=== PATIENT | female | born 2000 | race Caucasian/White ===

== ENCOUNTER 2019-10-10 09:42 | Emergency (ER) | payer MEDICAID, SELFPAY ==
[~2019-10-10] VITALS: Ht 167.6 cm; Wt 55.8 kg
[2019-10-10 10:00] VITALS: Ht 167.6 cm; Wt 55.8 kg
[2019-10-10 11:38] VITALS: BP 115/61
== END 2019-10-10 12:37 | disposition home or self-care (01) ==
LOC: ED 09:42
DX: R05 Cough (principal); R10.9 Unspecified abdominal pain; R11.2 Nausea with vomiting, unspecified; R19.7 Diarrhea, unspecified; J45.909 Unspecified asthma, uncomplicated; Z20.828 Contact with and (suspected) exposure to other viral communicable diseases
CPT/HCPCS: Q0092; U0003-CS